=== PATIENT | male | born 1990 | race Caucasian/White ===

== ENCOUNTER 2016-05-20 08:24 | Emergency (ER) | payer SELFPAY ==
[~2016-05-20] VITALS: Ht 180.3 cm; Wt 80.0 kg
[2016-05-20] MEDS ORDERED: KETOROLAC 60MG/2ML VIAL IM ONE (08:45)
[2016-05-20 09:06] VITALS: BP 99/71
== END 2016-05-20 09:47 | disposition home or self-care (01) ==
LOC: ER 08:33
DX: S80.11XA Contusion of right lower leg, initial encounter (principal); W22.8XXA Striking against or struck by other objects, initial encounter; Y93.89 Activity, other specified; Y99.8 Other external cause status; Y92.488 Other paved roadways as the place of occurrence of the external cause
CPT/HCPCS: 73590; 96372; 99284; J1885; Z7610

== ENCOUNTER → 2017-09-22 | Emergency (ER) | payer MEDICAID | LOC: ER 19:50 | DX: Z53.21 Procedure and treatment not carried out due to patient leaving prior to being seen by health care provider (principal) ==